=== PATIENT | male | born 1990 | race African-American/Black ===

== ENCOUNTER 2018-07-07 12:13 | Emergency (ER) | payer SELFPAY ==
[~2018-07-07] VITALS: Ht 172.7 cm; Wt 90.7 kg
[2018-07-07 12:20] VITALS: BP 167/78
[2018-07-07] MEDS ORDERED: KETOROLAC 60 MG/2 ML INJ. IM ONE (12:45)
--- NOTE | 2018-07-07 13:44 | RAD ---
Left shoulder, 3 views, 07/07/2018: HISTORY: Follow-up on ice, pain No shoulder fracture or dislocation is identified. A tiny calcification projected along the inferior margin of the left shoulder joint is probably old. IMPRESSION: No acute bony abnormality is detected. Left elbow, 3 views, 07/07/2018: There is mild deformity of the radial head. No definite acute fracture line is seen. The appearance suggests old trauma. No joint effusion is evident. IMPRESSION: 1. Mild deformity of the radial head is probably due to old trauma. 2. No acute bony abnormality is detected. Electronically signed by: Don Rowley MD (07/07/2018 1:41 PM) [facility]
--- NOTE | 2018-07-07 13:52 | PHYS DOC ---
Past Medical History Past Medical History: No Pertinent History Past Surgical History: No Surgical History Additional Information: Denies smoking Alcohol Use: None Drug Use: None Adult General Chief Complaint Chief Complaint: MECHANICAL FALL HPI HPI Patient is a 28 year old male who presents with complaining of a fall at ice and injury to left elbow and left shoulder. Patient states he was at parking lot of [employer] and fell on ice and landed on his left upper extremity without head injury or loss of consciousness. Patient complaining of pain in left elbow and shoulder and states he had left elbow surgery and metal placement previously and rated his pain as a moderate pain. Patient denies focal neuro deficit, fever and chills, nausea and vomiting. Review of Systems Review of Systems Constitutional: Denies fever or chills [] Eyes: Denies change in visual acuity, redness, or eye pain [] HENT: Denies nasal congestion or sore throat [] Respiratory: Denies cough or shortness of breath [] Cardiovascular: No additional information not addressed in HPI [] GI: Denies abdominal pain, nausea, vomiting, bloody stools or diarrhea [] : Denies dysuria or hematuria [] Musculoskeletal: Denies back pain, reports joint pain [] Integument: Denies rash or skin lesions [] Neurologic: Denies headache, focal weakness or sensory changes [] Endocrine: Denies polyuria or polydipsia [] All other systems were reviewed and found to be within normal limits, except as documented in this note. Current Medications Current Medications Current Medications Medications (Trade) Dose Ordered Sig/Geeta Start Time Stop Time Status Last Admin Dose Admin Ketorolac Tromethamine (Toradol Im) 60 mg 1X ONCE 07/07/18 12:45 07/07/18 12:50 DC 07/07/18 12:57 60 MG Allergies Allergies Allergies Coded Allergies Type Severity Reaction Last Updated Verified No Known Drug Allergies 07/07/18 No Physical Exam Physical Exam Constitutional: Well developed, well nourished, mild distress, non-toxic appearance. [] HENT: Normocephalic, atraumatic Eyes: PERRLA, EOMI, conjunctiva normal, no discharge. [] Neck: Normal range of motion, no tenderness, supple, no stridor. [] Cardiovascular:Heart rate regular rhythm, no murmur [] Lungs & Thorax: Bilateral breath sounds clear to auscultation [] Skin: Warm, dry, no erythema, no rash. [] Back: No tenderness, no CVA tenderness. [] Extremities: No shoulder or elbow deformity or edema or contusion painful range of motion of left shoulder and left elbow without point tenderness, no neurovascular deficit , no edema. [] Neurologic: Alert and oriented X 3, normal motor function, normal sensory function, no focal deficits noted. [] Psychologic: Affect normal, judgement normal, mood normal. [] Current Patient Data Vital Signs Vital Signs Date Time Temp Pulse Resp B/P (MAP) Pulse Ox O2 Delivery O2 Flow Rate FiO2 07/07/18 12:20 98.5 62 18 167/78 (107) 97 Room Air 98.5 EKG EKG [] Radiology/Procedures Radiology/Procedures [facility] [address] [place] [address] IMAGING REPORT Signed PATIENT: KIKA SCHAEFER ACCOUNT: [id number] : 1990 LOCATION: ER AGE: 28 SEX: M EXAM STATUS: REG ER ORD. PHYSICIAN: MICHAEL NAYAK MD REASON: fall PROCEDURE: ELBOW LEFT 3V Left shoulder, 3 views, 07/07/2018: HISTORY: Follow-up on ice, pain No shoulder fracture or dislocation is identified. A tiny calcification projected along the inferior margin of the left shoulder joint is probably old. IMPRESSION: No acute bony abnormality is detected. Left elbow, 3 views, 07/07/2018: There is mild deformity of the radial head. No definite acute fracture line is seen. The appearance suggests old trauma. No joint effusion is evident. IMPRESSION: 1. Mild deformity of the radial head is probably due to old trauma. 2. No acute bony abnormality is detected. Electronically signed by: Don Rowley MD (07/07/2018 1:41 PM) [facility] DICTATED and SIGNED BY: DON ROWLEY MD DATE: 07/07/18 6418 Course & Med Decision Making Course & Med Decision Making Pertinent Imaging studies reviewed. (See chart for details) Evaluation of patient in ER showed 28-year-old right-handed male patient who had a fall at ice and had injury to left elbow and left shoulder. Patient has history of previous left elbow surgery without deformity or bone tenderness. X- ray showed marked change of left elbow fracture without acute finding. Patient had shoulder sling and Obey wrap placement in ER and discharged home with prescription of Naprosyn and instruction to apply ice on his shoulder. Dragon Disclaimer Dragon Disclaimer This electronic medical record was generated, in whole or in part, using a voice recognition dictation system. Departure Departure Impression: Primary Impression: Strain of left elbow Additional Impression: Left shoulder strain Disposition: HOME, SELF-CARE (@5465) Condition: IMPROVED Referrals: NO PCP (PCP) Patient Instructions: Elbow Injury, Shoulder Sprain, Sling Use After Injury or Surgery Additional Instructions: Apply ice to affected area Drink plenty of liquids Follow-up with your primary care physician in 3-5 days Return to ER if not getting better Scripts Naproxen (NAPROSYN) 500 Mg Tablet 1 TAB PO BID for pain, #20 TAB Prov: MICHAEL NAYAK MD 07/07/18 Problem Qualifiers MICHAEL NAYAK MD Jul 07, 2018 13:52
[2018-07-07] MEDS ORDERED: NAPR-683 PO (13:57)
== END 2018-07-07 14:15 | disposition home or self-care (01) ==
LOC: ER 12:13
DX: S66.812A Strain of other specified muscles, fascia and tendons at wrist and hand level, left hand, initial encounter (principal); S46.912A Strain of unspecified muscle, fascia and tendon at shoulder and upper arm level, left arm, initial encounter; W00.0XXA Fall on same level due to ice and snow, initial encounter; Y93.89 Activity, other specified; Y92.481 Parking lot as the place of occurrence of the external cause; Y99.8 Other external cause status
CPT/HCPCS: 73030; 73080; 96372; 99283; J1885